=== PATIENT | female | born 1990 | race African-American/Black ===

== ENCOUNTER 2024-08-30 11:48 | Emergency (ER) | payer OTHER, SELFPAY ==
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
[2024-08-30 12:11] VITALS: BP 109/62; PULSE 70; RESP 18; TEMP 36.6; O2SAT 98; BMI 26.0
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
[2024-08-30 13:41] LABS: HCG Quantitative < 2 mIU/mL
[2024-08-30 15:23] VITALS: BP 109/62; PULSE 70; RESP 18; TEMP 36.6; O2SAT 98
== END 2024-08-30 15:30 | disposition home or self-care (01) ==
LOC: HO.ED 15:19
PROVIDERS: Physician Assistant Medical; Emergency Provider Emergency Medicine; PCP Family Medicine
DX: S06.0XAA Concussion with loss of consciousness status unknown, initial encounter (principal); S16.1XXA Strain of muscle, fascia and tendon at neck level, initial encounter; M54.50 Low back pain, unspecified; R51.9 Headache, unspecified; V89.2XXA Person injured in unspecified motor-vehicle accident, traffic, initial encounter; Y93.9 Activity, unspecified; Y92.410 Unspecified street and highway as the place of occurrence of the external cause; Y99.9 Unspecified external cause status
CPT/HCPCS: 36415; 70450; 72100; 72125; 84702; 99282; 99284

== ENCOUNTER → 2024-08-30 12:15 | Outpatient (BNV) | payer SELFPAY | PROVIDERS: PCP Family Medicine; Visit Provider Radiology Diagnostic Radiology | DX: M54.2 Cervicalgia (principal); R51.9 Headache, unspecified; R42 Dizziness and giddiness; R11.0 Nausea; M54.50 Low back pain, unspecified; Z04.3 Encounter for examination and observation following other accident | CPT/HCPCS: 70450; 72100; 72125 ==